=== PATIENT | female | born 1955 | race Caucasian/White ===

== ENCOUNTER 2021-08-23 14:47 | Outpatient (CLI) | payer BC ==
[2021-08-24 12:07] LABS: SARS-CoV-2 PCR by NAA Not Detected (NotDetected)
== END 2021-08-23 14:48 | disposition home or self-care (01) ==
LOC: LABBT 14:47
PROVIDERS: ATTEND Ophthalmology Retina Specialist
DX: Z01.812 Encounter for preprocedural laboratory examination (principal); H35.341 Macular cyst, hole, or pseudohole, right eye; H54.7 Unspecified visual loss; Z20.822 Contact with and (suspected) exposure to COVID-19
CPT/HCPCS: U0003; U0005

== ENCOUNTER 2022-02-21 08:16 | Outpatient (CLI) | payer MEDICARE, BC ==
[2022-02-21 19:26] LABS: SARS-CoV-2 PCR by NAA Not Detected (NotDetected)
== END 2022-02-21 08:17 | disposition home or self-care (01) ==
LOC: LABBT 08:16
PROVIDERS: ATTEND Ophthalmology Retina Specialist
DX: H35.341 Macular cyst, hole, or pseudohole, right eye (principal); H54.7 Unspecified visual loss; Z20.822 Contact with and (suspected) exposure to COVID-19
CPT/HCPCS: U0003; U0005

== ENCOUNTER 2022-02-26 09:08 | Day surgery (SDC) | payer MEDICARE, BC ==
[2022-02-22 13:25] VITALS: BMI 25.8
[~2022-02-26 09:08] MED LIST: Cyclopentolate 1% Opth Drop 2 ML BOT FS SCH; EPINEPHrine 0.3 MG in Ophthalmic Irrigation Solution 500 ML IRR SCH; Phenylephrine 2.5% Ophth Soln 5 ML BOT FS SCH
[2022-02-26] MEDS ORDERED: Midazolam HCl 2 mg/2 ml Vial ONE (09:56)
[2022-02-26] MEDS ORDERED: fentaNYL Citrate/PF 100 MCG/2 ML SYRINGE ONE (09:56)
[2022-02-26] MEDS ORDERED: Cyclopentolate 1% Opth Drop 2 ML BOT ONE (10:11)
[2022-02-26] MEDS ORDERED: Phenylephrine 2.5% Ophth Soln 5 ML BOT ONE (10:11)
[2022-02-26] MEDS ORDERED: Lidocaine 4% PF 5 ML AMP ONE (11:20)
[2022-02-26] MEDS ORDERED: CEFAZOLIN 1 GM VIAL ONE (11:20)
[2022-02-26] MEDS ORDERED: PROPOFOL 200 MG/20 ML VIAL ONE (11:20)
[2022-02-26] MEDS ORDERED: Lidocaine 1% PF 5 ML VIAL ONE (11:20)
[2022-02-26] MEDS ORDERED: Triamcinolone 40 MG/ML VIAL ONE (11:20)
[2022-02-26] MEDS ORDERED: Indocyanine Green 25 MG/10 ML VIAL ONE (11:20)
[2022-02-26] MEDS ORDERED: Bupivacaine 0.75% 10 ML VIAL ONE (11:20)
== END 2022-02-26 13:15 | disposition home or self-care (01) ==
LOC: SDC 09:08
PROVIDERS: ATTEND Ophthalmology Retina Specialist
PROC: 08T43ZZ Resection of Right Vitreous, Percutaneous Approach (ICD-10-PCS; principal; 2022-02-26)
PROC: 08NE3ZZ Release Right Retina, Percutaneous Approach (ICD-10-PCS; 2022-02-26)
DX: H35.341 Macular cyst, hole, or pseudohole, right eye (principal); Z88.8 Allergy status to other drugs, medicaments and biological substances
CPT/HCPCS: 67025; J0171; J0690; J2250; J2704; J3301; J3490

== ENCOUNTER 2022-03-19 05:58 | Day surgery (SDC) | payer MEDICARE, BC ==
[2022-03-18 10:57] VITALS: BMI 26.6
[2022-03-19] MEDS ORDERED: Phenylephrine 2.5% Ophth Soln 5 ML BOT ONE (06:09)
[2022-03-19] MEDS ORDERED: Cyclopentolate 1% Opth Drop 2 ML BOT ONE (06:09)
[2022-03-19] MEDS ORDERED: Midazolam HCl 2 mg/2 ml Vial ONE (06:25)
[2022-03-19] MEDS ORDERED: fentaNYL Citrate/PF 100 MCG/2 ML SYRINGE ONE (06:26)
[2022-03-19] MEDS ORDERED: EPINEPHrine 0.3 MG in Ophthalmic Irrigation Solution 500 ML IRR SCH (06:30)
[2022-03-19] MEDS ORDERED: CEFAZOLIN 1 GM VIAL ONE (07:21)
[2022-03-19] MEDS ORDERED: PROPOFOL 200 MG/20 ML VIAL ONE (07:21)
[2022-03-19] MEDS ORDERED: Lidocaine 1% PF 5 ML VIAL ONE (07:21)
[2022-03-19] MEDS ORDERED: Triamcinolone 40 MG/ML VIAL ONE (07:21)
[2022-03-19] MEDS ORDERED: Maxitrol 0.1% Opth Oint 3.5 GM TUBE ONE (07:21)
[2022-03-19] MEDS ORDERED: Indocyanine Green 25 MG/10 ML VIAL ONE (07:21)
[2022-03-19] MEDS ORDERED: Lidocaine 4% PF 5 ML AMP ONE (07:21)
[2022-03-19] MEDS ORDERED: Bupivacaine 0.75% 10 ML VIAL ONE (07:21)
== END 2022-03-19 09:00 | disposition home or self-care (01) ==
LOC: SDC 05:58
PROVIDERS: ATTEND Ophthalmology Retina Specialist
PROC: 08T43ZZ Resection of Right Vitreous, Percutaneous Approach (ICD-10-PCS; principal; 2022-03-19)
PROC: 08NE3ZZ Release Right Retina, Percutaneous Approach (ICD-10-PCS; 2022-03-19)
DX: H35.341 Macular cyst, hole, or pseudohole, right eye (principal); Z88.8 Allergy status to other drugs, medicaments and biological substances
CPT/HCPCS: 67025; J0171; J0690; J2250; J2704; J3301; J3490